=== PATIENT | male | born 1990 | race Caucasian/White ===

== ENCOUNTER 2016-08-30 21:49 | Emergency (ER) | payer MEDICAID ==
[~2016-08-30] VITALS: Ht 180.3 cm; Wt 70.3 kg
[2016-08-30 22:11] VITALS: BP 141/63
== END 2016-08-31 03:25 | disposition left against medical advice (07) ==
LOC: ER 21:49
DX: M25.512 Pain in left shoulder (principal); M79.672 Pain in left foot; R42 Dizziness and giddiness; Z53.21 Procedure and treatment not carried out due to patient leaving prior to being seen by health care provider; V43.62XA Car passenger injured in collision with other type car in traffic accident, initial encounter; Y93.89 Activity, other specified; Y99.8 Other external cause status; Y92.89 Other specified places as the place of occurrence of the external cause
CPT/HCPCS: 70450; 73030; 73630